=== PATIENT | female | born 1985 | race Caucasian/White ===

== ENCOUNTER 2016-11-07 13:53 | Emergency (ER) | payer SELFPAY ==
--- NOTE | 2016-11-07 14:19 | ER Document Report ---
ED Medical Screen (RME) - General Chief Complaint: Foot Pain Stated Complaint: FOOT INJURY Mode of Arrival: Wheelchair Information source: Patient Notes: 31-year-old female presents to the emergency department complaining of left foot pain. States approximately 2 hours ago accidentally struck her left foot on corner of wall. I have greeted and performed a rapid initial assessment of this patient. A comprehensive ED assessment and evaluation of the patient, analysis of test results and completion of the medical decision making process will be conducted by additional ED providers. TRAVEL OUTSIDE OF THE [place] IN LAST 30 DAYS: No - Related Data Allergies/Adverse Reactions: No Known Drug Allergies Allergy (Unknown, Verified 11/07/16 14:17) glutens Adverse Reaction (Intermediate, Uncoded 11/07/16 14:17) G.I. distress Past Medical History - Social History Chew tobacco use (# tins/day): No Frequency of alcohol use: Rare Drug Abuse: None - Past Medical History Cardiac Medical History: Denies: Hx Coronary Artery Disease, Hx Heart Attack, Hx Hypertension Pulmonary Medical History: Denies: Hx Asthma, Hx Bronchitis, Hx COPD, Hx Pneumonia Neurological Medical History: Denies: Hx Cerebrovascular Accident, Hx Seizures Renal/ Medical History: Reports: Hx Kidney Stones. Denies: Hx Peritoneal Dialysis Malignancy Medical History: Reports: Hx Breast Cancer, Hx Ovarian Cancer GI Medical History: Reports: Hx Diverticulitis, Hx Irritable Bowel Musculoskeltal Medical History: Denies Hx Arthritis, Reports Hx Musculoskeletal Deformity, Reports Hx Musculoskeletal Trauma Skin Medical History: Reports Hx Psoriasis Psychiatric Medical History: Reports: Hx Attention Deficit Hyperactivity Disorder, Hx Bipolar Disorder, Hx Post Traumatic Stress Disorder Traumatic Medical History: Reports: Hx Fractures - left arm and ribs Infectious Medical History: Reports: Hx C-Diff Past Surgical History: Reports: Hx Breast Surgery - lumpectomy right, Hx Section, Hx Cholecystectomy, Hx Mastectomy - right, Hx Oral Surgery - jaw wired shut, wisdom teeth removed, Hx Tubal Ligation - Immunizations Hx Diphtheria, Pertussis, Tetanus Vaccination: Yes Physical Exam - Vital signs Vitals: Temp Pulse Resp BP Pulse Ox 98.1 F 97 16 116/68 97 11/07/16 14:13 11/07/16 14:13 11/07/16 14:13 11/07/16 14:13 11/07/16 14:13 - General General appearance: Appears well, Alert In distress: None - Cardiovascular Pulses: Normal: Posterior tibial Normal capillary refill: Yes - Extremities Foot: Tender. No: Deformity Course - Vital Signs Vital signs: Temp Pulse Resp BP Pulse Ox 98.1 F 97 16 116/68 97 11/07/16 14:13 11/07/16 14:13 11/07/16 14:13 11/07/16 14:13 11/07/16 14:13
--- NOTE | 2016-11-07 15:18 | ER Document Report ---
HPI - HPI Patient complains to provider of: foot injury Onset: Just prior to arrival Onset/Duration: Sudden Quality of pain: Sharp Pain Level: 4 Context: Patient states she was running while wearing socks and slid on a carpeted surface hitting a wall. Patient complains of left lateral foot pain. Associated Symptoms: Other - Left foot injury Exacerbated by: Standing, Movement, Walking Relieved by: Denies Similar symptoms previously: No Recently seen / treated by doctor: No - ROS ROS below otherwise negative: Yes Systems Reviewed and Negative: Yes All other systems reviewed and negative - GASTROINTESTINAL Gastrointestinal: DENIES: Nausea, Patient vomiting - REPRODUCTIVE Reproductive: DENIES: : - MUSCULOSKELETAL Musculoskeletal: REPORTS: Extremity pain - DERM Skin Color: Normal Skin Problems: None Past Medical History - General Information source: Patient - Social History Smoking Status: Current Every Day Smoker Chew tobacco use (# tins/day): No Frequency of alcohol use: Rare Drug Abuse: None Occupation: none Lives with: Family Family History: Arthritis, COPD, CVA, DM, Hyperlipidemia, Hypertension, Malignancy. denies: CAD, Thyroid Disfunction Patient has suicidal ideation: No Patient has homicidal ideation: No - Past Medical History Cardiac Medical History: Reports: Other - Low blood pressure Denies: Hx Coronary Artery Disease, Hx Heart Attack, Hx Hypertension Pulmonary Medical History: Denies: Hx Asthma, Hx Bronchitis, Hx COPD, Hx Pneumonia Neurological Medical History: Denies: Hx Cerebrovascular Accident, Hx Seizures Renal/ Medical History: Reports: Hx Kidney Stones. Denies: Hx Peritoneal Dialysis Malignancy Medical History: Reports: Hx Breast Cancer, Hx Ovarian Cancer GI Medical History: Reports: Hx Diverticulitis, Hx Irritable Bowel Musculoskeltal Medical History: Denies Hx Arthritis, Reports Hx Musculoskeletal Deformity, Reports Hx Musculoskeletal Trauma Skin Medical History: Reports Hx Psoriasis Psychiatric Medical History: Reports: Hx Attention Deficit Hyperactivity Disorder, Hx Bipolar Disorder, Hx Post Traumatic Stress Disorder Traumatic Medical History: Reports: Hx Fractures - left arm and ribs Infectious Medical History: Reports: Hx C-Diff Past Surgical History: Reports: Hx Breast Surgery - lumpectomy right, Hx Section, Hx Cholecystectomy, Hx Mastectomy - right, Hx Oral Surgery - jaw wired shut, wisdom teeth removed, Hx Tubal Ligation - Immunizations Hx Diphtheria, Pertussis, Tetanus Vaccination: Yes Vertical Provider Document - CONSTITUTIONAL Agree With Documented VS: Yes Exam Limitations: No Limitations General Appearance: WD/WN, No Apparent Distress - INFECTION CONTROL TRAVEL OUTSIDE OF THE [place] IN LAST 30 DAYS: No - HEENT HEENT: Atraumatic, Normocephalic - NECK Neck: Normal Inspection - RESPIRATORY Respiratory: No Respiratory Distress O2 Sat by Pulse Oximetry: 97 - CARDIOVASCULAR Pulses: Normal: Dorsalis pedis - MUSCULOSKELETAL/EXTREMETIES Musculoskeletal/Extremeties: MAEW, Tender - Left foot tenderness along left fifth metatarsal and left second toe, Eccymosis - Left second toe - NEURO Level of Consciousness: Awake, Alert, Appropriate Motor/Sensory: No Motor Deficit - DERM Integumentary: Warm, Dry, No Rash Course - Vital Signs Vital signs: Temp Pulse Resp BP Pulse Ox 98.1 F 97 16 116/68 97 11/07/16 14:13 11/07/16 14:13 11/07/16 14:13 11/07/16 14:13 11/07/16 14:13 - Diagnostic Test Radiology reviewed: Image reviewed, Reports reviewed Procedures - Immobilization Left Foot Pre-Proc Neuro Vasc Exam: Normal Immobilizer type: Diego wrap, Post-op shoe Performed by: PCT Post-Proc Neuro Vasc Exam: Normal Alignment checked and good: Yes Discharge - Discharge Clinical Impression: Sprain of foot, left Qualifiers: Encounter type: initial encounter Qualified Code(s): S93.602A - Unspecified sprain of left foot, initial encounter Condition: Stable Disposition: HOME, SELF-CARE Instructions: Sprain ([facility]), Oral Narcotic Medication ([facility]), Ice Packs ([facility]), Diego Wrap ([facility]), Post-Op Shoe ([facility]), Use of Crutches ([facility]) Additional Instructions: Return immediately for any new or worsening symptoms Followup with your primary care provider, call tomorrow to make a followup appointment Follow up with orthopedic DrTai for any continued pain or problems Weightbearing as tolerated Prescriptions: Oxycodone HCl/Acetaminophen [Percocet 5-325 mg Tablet] 1 tab PO ASDIR PRN #15 tablet PRN Reason: Referrals: [facility] ([facility]) [Provider Group] - Follow up as needed
[2016-11-07 16:02] VITALS: BP 120/63
== END 2016-11-07 16:02 | disposition home or self-care (01) ==
LOC: ER 13:53
DX: S93.602A Unspecified sprain of left foot, initial encounter (principal); S90.122A Contusion of left lesser toe(s) without damage to nail, initial encounter; W22.01XA Walked into wall, initial encounter; Z85.3 Personal history of malignant neoplasm of breast; Z85.43 Personal history of malignant neoplasm of ovary
CPT/HCPCS: 99283

== ENCOUNTER 2017-01-12 21:02 | Emergency (ER) | payer SELFPAY ==
[2017-01-12 21:13] VITALS: BP 119/65
--- NOTE | 2017-01-12 23:17 | ER Document Report ---
ED ENT - General Chief Complaint: L ear pain with bleeding/ pressure Stated Complaint: BLEEDING FROM EAR WITH PAIN AND PRESSURE Notes: The patient is a 31-year-old female who presents with bleeding from her left ear after using a Q-tip and maxillary sinus pressure over the past 2 days. On arrival to the emergency room, the patient's bleeding has resolved. She denies hearing changes, blurry vision, fevers or rhinorrhea. TRAVEL OUTSIDE OF THE [place] IN LAST 30 DAYS: No - Related Data Allergies/Adverse Reactions: No Known Drug Allergies Allergy (Unknown, Verified 11/07/16 14:17) glutens Adverse Reaction (Intermediate, Uncoded 11/07/16 14:17) G.I. distress Past Medical History - General Information source: Patient - Social History Smoking Status: Unknown if Ever Smoked Family History: Arthritis, COPD, CVA, DM, Hyperlipidemia, Hypertension, Malignancy. denies: CAD, Thyroid Disfunction - Past Medical History Cardiac Medical History: Denies: Hx Coronary Artery Disease, Hx Heart Attack, Hx Hypertension Pulmonary Medical History: Denies: Hx Asthma, Hx Bronchitis, Hx COPD, Hx Pneumonia Neurological Medical History: Denies: Hx Cerebrovascular Accident, Hx Seizures Renal/ Medical History: Reports: Hx Kidney Stones. Denies: Hx Peritoneal Dialysis Malignancy Medical History: Reports: Hx Breast Cancer, Hx Ovarian Cancer GI Medical History: Reports: Hx Diverticulitis, Hx Irritable Bowel Musculoskeltal Medical History: Denies Hx Arthritis, Reports Hx Musculoskeletal Deformity, Reports Hx Musculoskeletal Trauma Skin Medical History: Reports Hx Psoriasis Psychiatric Medical History: Reports: Hx Attention Deficit Hyperactivity Disorder, Hx Bipolar Disorder, Hx Post Traumatic Stress Disorder Traumatic Medical History: Reports: Hx Fractures - left arm and ribs Infectious Medical History: Reports: Hx C-Diff Past Surgical History: Reports: Hx Breast Surgery - lumpectomy right, Hx Section, Hx Cholecystectomy, Hx Mastectomy - right, Hx Oral Surgery - jaw wired shut, wisdom teeth removed, Hx Tubal Ligation - Immunizations Hx Diphtheria, Pertussis, Tetanus Vaccination: Yes Review of Systems - Review of Systems Notes: REVIEW OF SYSTEMS: CONSTITUTIONAL: -fevers, -chills EENT: -eye pain, -difficulty swallowing, -nasal congestion, +left ear bleeding, +left maxillary sinus pressure CARDIOVASCULAR:-chest pain, -syncope. RESPIRATORY: -cough, -SOB GASTROINTESTINAL: -abdominal pain, -nausea, -vomiting, -diarrhea GENITOURINARY: -dysuria, -hematuria MUSCULOSKELETAL: -back pain, -neck pain SKIN: -rash or skin lesions. HEMATOLOGIC: -easy bruising or bleeding. LYMPHATIC: -swollen, enlarged glands. NEUROLOGICAL: -altered mental status or loss of consciousness, -headache, - neurologic symptoms PSYCHIATRIC: -anxiety, -depression. ALL OTHER SYSTEMS REVIEWED AND NEGATIVE. Physical Exam - Vital signs Vitals: Temp Pulse Resp BP Pulse Ox 98.1 F 78 18 119/65 94 01/12/17 21:09 01/12/17 21:09 01/12/17 21:09 01/12/17 21:09 01/12/17 21:09 - Notes Notes: PHYSICAL EXAMINATION: GENERAL: Well-appearing, well-nourished and in no acute distress. HEAD: Atraumatic, normocephalic. EYES: Pupils equal round and reactive to light, extraocular movements intact, sclera anicteric, conjunctiva are normal. ENT: nares patent, oropharynx clear without exudates. Moist mucous membranes. Dried blood in left ear canal. Left maxillary sinus tenderness NECK: Normal range of motion, supple without lymphadenopathy LUNGS: Breath sounds clear to auscultation bilaterally and equal. No wheezes rales or rhonchi. HEART: Regular rate and rhythm without murmurs ABDOMEN: Soft, nontender, normoactive bowel sounds. No guarding, no rebound. No masses appreciated. EXTREMITIES: Normal range of motion, no pitting or edema. No cyanosis. NEUROLOGICAL: Cranial nerves grossly intact. Normal speech, normal gait. Normal sensory, motor, and reflex exams. PSYCH: Normal mood, normal affect. SKIN: Warm, Dry, normal turgor, no rashes or lesions noted. Course - Re-evaluation Re-evalutation: No active bleeding from the ear. Instructed her to not use Q-tips in the ear. - Vital Signs Vital signs: Temp Pulse Resp BP Pulse Ox 98.1 F 78 18 119/65 94 01/12/17 21:09 01/12/17 21:09 01/12/17 21:09 01/12/17 21:09 01/12/17 21:09 Discharge - Discharge Clinical Impression: Abrasion of left ear canal Qualifiers: Encounter type: initial encounter Qualified Code(s): S00.412A - Abrasion of left ear, initial encounter Condition: Good Disposition: HOME, SELF-CARE Additional Instructions: Abrasions An abrasion is a scraping injury of the skin. Some scarring may result. The seriousness of an abrasion is not always obvious at first. Hidden tissue damage may be present and infection may occur despite proper care. Complete healing may take from ten days to as long as a month. The healing time depends on the depth of the abrasion, and on the amount of crushing of underlying tissues from the injury. Keep the wound and dressing clean. Do not shower or bathe the area until okayed by the doctor. If the dressing gets wet, remove it and blot the wound dry, then reapply a clean dressing. Dressings should be changed every day. Sunscreen should be used for six months after the skin is healed. If any signs of infection occur (swelling, redness, increasing tenderness, red streaks, profuse purulent drainage from the abrasion, tender lumps in the armpit or groin above the abrasion, or fever), see the doctor immediately. Referrals: KARYNA ALVARADO MD [ACTIVE STAFF] - Follow up as needed
== END 2017-01-12 23:30 | disposition home or self-care (01) ==
LOC: ER 21:02
DX: S00.412A Abrasion of left ear, initial encounter (principal); H92.02 Otalgia, left ear; X58.XXXA Exposure to other specified factors, initial encounter; Y93.E8 Activity, other personal hygiene; Z87.442 Personal history of urinary calculi; Z85.3 Personal history of malignant neoplasm of breast; Z85.43 Personal history of malignant neoplasm of ovary; Z90.49 Acquired absence of other specified parts of digestive tract; Z90.11 Acquired absence of right breast and nipple; Z98.51 Tubal ligation status
CPT/HCPCS: 99282

== ENCOUNTER 2017-01-14 13:19 | Emergency (ER) | payer SELFPAY ==
--- NOTE | 2017-01-14 14:12 | ER Document Report ---
HPI - HPI Patient complains to provider of: worsening left ear pain Onset: Other Onset/Duration: Persistent, Worse Quality of pain: Achy, Pressure, Throbbing Pain Level: 4 Context: 31-year-old female was treated for a scratch to her left ear canal 2 days ago in the emergency department. She was told to come back of the pain got worse and she feels like there is pressure and increased pain that radiates to preauricular area. Associated Symptoms: None Exacerbated by: Movement - External ear Relieved by: Denies Similar symptoms previously: No Recently seen / treated by doctor: Yes - ROS ROS below otherwise negative: Yes Systems Reviewed and Negative: Yes All other systems reviewed and negative - REPRODUCTIVE Reproductive: DENIES: : - DERM Skin Color: Normal, Convoy Past Medical History - General Information source: Patient - Social History Smoking Status: Current Every Day Smoker Frequency of alcohol use: None Drug Abuse: None Lives with: Spouse/Significant other Family History: Arthritis, COPD, CVA, DM, Hyperlipidemia, Hypertension, Malignancy - Past Medical History Cardiac Medical History: Pulmonary Medical History: Renal/ Medical History: Reports: Hx Kidney Stones Malignancy Medical History: Reports: Hx Breast Cancer, Hx Ovarian Cancer GI Medical History: Reports: Hx Diverticulitis, Hx Irritable Bowel Musculoskeltal Medical History: Reports Hx Musculoskeletal Deformity, Reports Hx Musculoskeletal Trauma Skin Medical History: Reports Hx Psoriasis Psychiatric Medical History: Reports: Hx Attention Deficit Hyperactivity Disorder, Hx Bipolar Disorder, Hx Post Traumatic Stress Disorder Traumatic Medical History: Reports: Hx Fractures - left arm and ribs Infectious Medical History: Reports: Hx C-Diff Past Surgical History: Reports: Hx Breast Surgery - lumpectomy right, Hx Section, Hx Cholecystectomy, Hx Mastectomy - right, Hx Oral Surgery - jaw wired shut, wisdom teeth removed, Hx Tubal Ligation - Immunizations Hx Diphtheria, Pertussis, Tetanus Vaccination: Yes Vertical Provider Document - CONSTITUTIONAL Agree With Documented VS: Yes Exam Limitations: No Limitations - INFECTION CONTROL TRAVEL OUTSIDE OF THE [place] IN LAST 30 DAYS: No - HEENT HEENT: Normocephalic. negative: Pharyngeal Erythema, Tympanic Membrane Red Notes: Mild Swelling, pink, and tenderness to the left ear canal. The TM is normal. No pre-or posterior auricular nodes and no external ear swelling - NECK Neck: Supple. negative: Lymphadenopathy-Left, Lymphadenopathy-Right - RESPIRATORY Respiratory: Breath Sounds Normal, No Respiratory Distress O2 Sat by Pulse Oximetry: 100 - CARDIOVASCULAR Cardiovascular: Regular Rate, Regular Rhythm - NEURO Level of Consciousness: Awake, Alert - DERM Integumentary: Warm, Dry Course - Vital Signs Vital signs: Temp Pulse Resp BP Pulse Ox 99 F 96 16 112/65 100 01/14/17 13:27 01/14/17 13:27 01/14/17 13:27 01/14/17 13:27 01/14/17 13:27 Discharge - Discharge Clinical Impression: Left otitis externa Qualifiers: Otitis externa type: unspecified type Chronicity: acute Qualified Code(s): H60.502 - Unspecified acute noninfective otitis externa, left ear Otalgia Qualifiers: Laterality: left Qualified Code(s): H92.02 - Otalgia, left ear Disposition: HOME, SELF-CARE Unit Admitted: Nursery Instructions: Acetaminophen, Otitis Externa ([facility]), Use of [id number]-Gyu-Djxgcmb Ibuprofen ([facility]), Warm Packs ([facility]) Additional Instructions: warm compress ear drops with antibiotic and steroid will help see ent doctor if persists return to er if any swelling to canal or external ear, fever, worsening pain Please complete the patient satisfaction survey if you get one, and return it.. If you do not receive a survey, then you can go to the [facility] website, [email or web address] and place your comments about your very good care. Thank you very much. It was a pleasure being your medical provider today. Prescriptions: Ciprofloxacin HCl/Dexameth [Ciprodex Otic Suspension 7.5 ml Bottle] 4 drop OS BID #1 bottle
[2017-01-14 15:15] VITALS: BP 110/62
== END 2017-01-14 15:15 | disposition home or self-care (01) ==
LOC: ER 13:19
DX: H60.502 Unspecified acute noninfective otitis externa, left ear (principal); H92.02 Otalgia, left ear; F17.200 Nicotine dependence, unspecified, uncomplicated; Z87.442 Personal history of urinary calculi; Z85.3 Personal history of malignant neoplasm of breast; Z85.43 Personal history of malignant neoplasm of ovary; Z90.49 Acquired absence of other specified parts of digestive tract
CPT/HCPCS: 99282

== ENCOUNTER 2017-06-11 22:24 | Emergency (ER) | payer SELFPAY ==
--- NOTE | 2017-06-11 22:53 | RADIOLOGY REPORT (SQ) ---
EXAM DESCRIPTION: CHEST PA/LAT COMPLETED DATE/TIME: 06/11/2017 10:45 pm REASON FOR STUDY: sob COMPARISON: 06/12/2012 NUMBER OF VIEWS: Two view. TECHNIQUE: Frontal and lateral radiographic views of the chest acquired. LIMITATIONS: None. FINDINGS: LUNGS AND PLEURA: Mild Peribronchial cuffing and interstitial changes. No consolidation, effusion, or pneumothorax. MEDIASTINUM AND HILAR STRUCTURES: No masses. No contour abnormalities. HEART AND VASCULAR STRUCTURES: Heart normal in size and contour. No evidence for failure. BONES: No acute findings. HARDWARE: None in the chest. OTHER: No other significant finding. IMPRESSION: REACTIVE AIRWAY DISEASE VERSUS VIRAL SYNDROME. NO CONSOLIDATION. TECHNICAL DOCUMENTATION: JOB ID: [id number] [employer]- All Rights Reserved
[2017-06-11] MEDS ORDERED: TRAMADOL HCL 50 MG TABLET PO ONE (23:15)
--- NOTE | 2017-06-11 23:20 | ER Document Report ---
ED General - General Chief Complaint: Shortness Of Breath Stated Complaint: BREATHING PROBLEMS Time Seen by Provider: 06/11/17 23:07 Notes: Patient is a 31-year-old female presents with complaint of pain along her left rib cage. Hurts to touch and hurts to take a deep breath. She says it came on suddenly an hour and a half ago. Boyfriend says that she is actually had some dull pain there for the last 2 days but also became suddenly worse an hour and a half ago. She does have a history of shingles. She had shingles in her right hand. She has had no rash over the area over her rib cage. She denies recent fevers or infections. She currently takes no medications and is otherwise healthy. She does smoke. She denies taking control. TRAVEL OUTSIDE OF THE [place] IN LAST 30 DAYS: No - Related Data Allergies/Adverse Reactions: No Known Drug Allergies Allergy (Unknown, Verified 06/11/17 22:27) glutens Adverse Reaction (Intermediate, Uncoded 11/07/16 14:17) G.I. distress Past Medical History - Social History Smoking Status: Current Every Day Smoker Frequency of alcohol use: None Drug Abuse: None Family History: Arthritis, COPD, CVA, DM, Hyperlipidemia, Hypertension, Malignancy Patient has suicidal ideation: No Patient has homicidal ideation: No - Past Medical History Cardiac Medical History: Denies: Hx Coronary Artery Disease, Hx Heart Attack, Hx Hypertension Pulmonary Medical History: Denies: Hx Asthma, Hx Bronchitis, Hx COPD, Hx Pneumonia Neurological Medical History: Denies: Hx Cerebrovascular Accident, Hx Seizures Renal/ Medical History: Reports: Hx Kidney Stones. Denies: Hx Peritoneal Dialysis Malignancy Medical History: Reports: Hx Breast Cancer, Hx Ovarian Cancer GI Medical History: Reports: Hx Diverticulitis, Hx Irritable Bowel Musculoskeltal Medical History: Denies Hx Arthritis, Reports Hx Musculoskeletal Deformity, Reports Hx Musculoskeletal Trauma Skin Medical History: Reports Hx Psoriasis Psychiatric Medical History: Reports: Hx Attention Deficit Hyperactivity Disorder, Hx Bipolar Disorder, Hx Post Traumatic Stress Disorder Traumatic Medical History: Reports: Hx Fractures - left arm and ribs Infectious Medical History: Reports: Hx C-Diff Past Surgical History: Reports: Hx Breast Surgery - lumpectomy right, Hx Section, Hx Cholecystectomy, Hx Gynecologic Surgery - rt oophorectomy, Hx Mastectomy - right, Hx Oral Surgery - jaw wired shut, wisdom teeth removed, Hx Tubal Ligation - Immunizations Hx Diphtheria, Pertussis, Tetanus Vaccination: Yes Review of Systems - Review of Systems Notes: My Normal Review Basic REVIEW OF SYSTEMS: CONSTITUTIONAL : Denies fever, chills, or sweats. Denies recent illness. EENT: Denies eye, ear, throat, or mouth pain or symptoms. Denies nasal or sinus congestion. CARDIOVASCULAR: Denies chest pain. RESPIRATORY: Denies cough, cold, or chest congestion. Denies shortness of breath, difficulty breathing, or wheezing. GASTROINTESTINAL: Denies abdominal pain. Denies nausea, vomiting, or diarrhea. Denies constipation. Last BM: MUSCULOSKELETAL: Denies neck or back pain or joint pain or swelling. SKIN: Denies rash or skin lesions. NEUROLOGICAL: Denies altered mental status or loss of consciousness. Denies headache. Denies weakness or paralysis or loss of use of either side. Denies problems with gait or speech. Denies sensory or motor loss.. ALL OTHER SYSTEMS REVIEWED AND NEGATIVE. Physical Exam - Vital signs Vitals: Temp Pulse Resp BP Pulse Ox 98.5 F 91 18 107/83 100 06/11/17 22:29 06/11/17 22:29 06/11/17 22:29 06/11/17 22:29 06/11/17 22:29 - Notes Notes: General Appearance: Well nourished, alert, cooperative, no acute distress, no obvious discomfort. Vitals: reviewed, See vital signs table. Head: no swelling or tenderness to the head Eyes: PERRL, EOMI, Conjuctiva clear Mouth: No decreasd moisture Chest wall: Patient is severely tender to touch along the left rib cage. I do not see any shingles or rash this time. Lungs: No wheezing, No rales, No rhonci, No accessory muscle use, good air exchange bilaterally. Heart: Normal rate, Regular rythm, No murmur, no rub Abdomen: Normal BS, soft, No rigidity, No abdominal tenderness, No guarding, no rebound, no abdominal masses, no organomegaly Extremities: strength 5/5 in all extremities, good pulses in all extremities, no swelling or tenderness in the extremities, no edema. Skin: warm, dry, appropriate color, no rash Neuro: speech clear, oriented x 3, normal affect, responds appropriately to questions. Course - Re-evaluation Re-evalutation: 06/12/17 00:46 Patient's pain is such that she is very tender with any touching of the skin itself. I suspect that she most likely is having pre-herpetic neuralgia. I suspect in the few days she most likely of shingles over this area. She does have a history of shingles in the past. Pain is very pleuritic and she is a smoker therefore I did obtain a d-dimer. This was negative. Her vital signs are normal. I feel she is safe to be discharged home. Informed her follow-up with her doctor next 2-3 days. I encouraged her return to ER if she has worsening pain, fevers, difficulty breathing, or feels that she is getting worse. Patient agrees with plan will be discharged home. Dictation of this chart was performed using voice recognition software; therefore, there may be some unintended grammatical errors. - Vital Signs Vital signs: Temp Pulse Resp BP Pulse Ox 98.5 F 91 18 107/83 100 06/11/17 22:29 06/11/17 22:29 06/11/17 22:29 06/11/17 22:29 06/11/17 22:29 - Laboratory Result Diagrams: 06/11/17 23:22 06/11/17 23:22 Laboratory results interpreted by me: 06/11/17 06/11/17 23:22 23:22 WBC 10.8 H RDW 14.2 H Glucose 68 L Discharge - Discharge Clinical Impression: Rib pain on left side Condition: Good Disposition: HOME, SELF-CARE Instructions: Oral Narcotic Medication ([facility]) Additional Instructions: Please return to the ER Immediately if you develop fevers, difficulty breathing , or feel that you are worsening. Please take do not drive when taking the ultram as it will make you sleepy. Please follow-up with your doctor in 3-4 days for close reevaluation. Prescriptions: Tramadol HCl [Ultram 50 mg Tablet] 50 mg PO Q6HP PRN #25 tablet PRN Reason: Forms: Return to School
[2017-06-11 23:37] LABS: ABSOLUTE BASOPHILS # (AUTO) 0.1 10^3/uL (0.0-0.2); ABSOLUTE EOSINOPHILS # (AUTO) 0.1 10^3/uL (0.0-0.6); ABSOLUTE LYMPHOCYTES (AUTO) 3.3 10^3/uL (0.5-4.7); ABSOLUTE MONOCYTES (AUTO) 0.8 10^3/uL (0.1-1.4); ABSOLUTE NEUT (AUTO) 6.5 10^3/uL (1.7-8.2); BASOPHILS % (AUTO) 0.6 % (0-2); EOSINOPHILS % (AUTO) 0.5 % (0-6); HEMATOCRIT 38.7 % (36.0-47.0); HEMOGLOBIN 13.9 g/dL (12.0-15.5); LYMPHOCYTES % (AUTO) 30.8 % (13-45); MEAN CORPUSCULAR HEMOGLOBIN 32.5 pg (27.0-33.4); MEAN CORPUSCULAR HGB CONC 35.9 g/dL (32.0-36.0); MEAN CORPUSCULAR VOLUME 91 fl (80-97); MONOCYTES % (AUTO) 7.7 % (3-13); RED BLOOD COUNT 4.27 10^6/uL (3.72-5.28); RED CELL DISTRIBUTION WIDTH 14.2 % (11.5-14.0); SEGMENTED NEUTROPHILS % (AUTO) 60.4 % (42-78); WHITE BLOOD COUNT 10.8 10^3/uL (4.0-10.5)
[2017-06-11 23:50] LABS: ANION GAP 10 (5-19); BLOOD UREA NITROGEN 12 mg/dL (7-20); CALCIUM 10.1 mg/dL (8.4-10.2); CARBON DIOXIDE 25 mmol/L (22-30); CHLORIDE 106 mmol/L (98-107); CREATININE RESULT 0.64 mg/dL (0.52-1.25); GLUCOSE 68 mg/dL (75-110); SODIUM 141.4 mmol/L (137-145)
[2017-06-12 01:10] VITALS: BP 99/63
--- NOTE | 2017-06-12 07:25 | EKG REPORT ---
SEVERITY:- BORDERLINE ECG - SINUS TACHYCARDIA PROBABLE LEFT ATRIAL ABNORMALITY MINIMAL ST DEPRESSION, INFERIOR LEADS : Confirmed by: Bony Allen MD 12-Jun-2017 07:23:58
== END 2017-06-12 00:55 | disposition home or self-care (01) ==
LOC: ER 22:24
DX: R07.81 Pleurodynia (principal); R07.1 Chest pain on breathing; F17.200 Nicotine dependence, unspecified, uncomplicated
CPT/HCPCS: 36415; 71020; 80048; 85025; 85379; 93005; 93010; 99285

== ENCOUNTER 2018-01-20 00:53 | Emergency (ER) | payer SELFPAY ==
[2018-01-20] MEDS ORDERED: LIDOCAINE 2% URO-JET 5 ML KIT MM ONE (01:58)
--- NOTE | 2018-01-20 01:59 | ER Document Report ---
ED General - General Mode of Arrival: Ambulatory Information source: Patient TRAVEL OUTSIDE OF THE [place] IN LAST 30 DAYS: No <FRANCISCO MEDINA - Last Filed: 01/20/18 04:23> <KRISH [employer] - Last Filed: 01/20/18 04:47> - General Chief Complaint: Laceration Stated Complaint: VAGINAL LACERATION Time Seen by Provider: 01/20/18 01:38 Notes: Patient is a 32-year-old female presents to the emergency department complaining a possible laceration on her labia. Patient states that she was in the middle of intercourse when her partner "missed" her vagina and she felt a sting. She also complains of vaginal pain with ambulation. (FRANCISCO MEDINA) - Related Data Allergies/Adverse Reactions: No Known Drug Allergies Allergy (Unknown, Verified 01/20/18 00:55) glutens Adverse Reaction (Intermediate, Uncoded 11/07/16 14:17) G.I. distress Past Medical History - General Information source: Patient - Social History Smoking Status: Current Every Day Smoker Chew tobacco use (# tins/day): No Family History: Arthritis, COPD, CVA, DM, Hyperlipidemia, Hypertension, Malignancy - Past Medical History Cardiac Medical History: Pulmonary Medical History: Renal/ Medical History: Reports: Hx Kidney Stones Malignancy Medical History: Reports: Hx Breast Cancer, Hx Ovarian Cancer GI Medical History: Reports: Hx Diverticulitis, Hx Irritable Bowel Musculoskeltal Medical History: Reports Hx Musculoskeletal Deformity, Reports Hx Musculoskeletal Trauma Skin Medical History: Reports Hx Psoriasis Psychiatric Medical History: Reports: Hx Attention Deficit Hyperactivity Disorder, Hx Bipolar Disorder, Hx Post Traumatic Stress Disorder Traumatic Medical History: Reports: Hx Fractures - left arm and ribs Infectious Medical History: Reports: Hx C-Diff Past Surgical History: Reports: Hx Breast Surgery - lumpectomy right, Hx Section, Hx Cholecystectomy, Hx Gynecologic Surgery - rt oophorectomy, Hx Mastectomy - right, Hx Oral Surgery - jaw wired shut, wisdom teeth removed, Hx Tubal Ligation - Immunizations Hx Diphtheria, Pertussis, Tetanus Vaccination: Yes <FRANCISCO MEDINA - Last Filed: 01/20/18 04:23> Review of Systems - Review of Systems Constitutional: No symptoms reported EENT: No symptoms reported Cardiovascular: No symptoms reported Respiratory: No symptoms reported Gastrointestinal: No symptoms reported Genitourinary: No symptoms reported Female Genitourinary: See HPI Musculoskeletal: No symptoms reported Skin: No symptoms reported Hematologic/Lymphatic: No symptoms reported Neurological/Psychological: No symptoms reported -: Yes All other systems reviewed and negative <FRANCISCO MEDINA - Last Filed: 01/20/18 04:23> Physical Exam - General General appearance: Appears well, Anxious In distress: None - HEENT Head: Normocephalic, Atraumatic Eyes: Normal Conjunctiva: Normal Extraocular movements intact: Yes Pupils: PERRL Mucous membranes: Moist Neck: Normal - Genitourinary External exam: Laceration - 3 cm irregular lacerations to the labia minora, bilaterally. Bleeding controlled. - Extremities General upper extremity: Normal ROM General lower extremity: Normal ROM - Neurological Neuro grossly intact: Yes Cognition: Normal Orientation: AAOx4 Miroslava Coma Scale Eye Opening: Spontaneous Miroslava Coma Scale Verbal: Oriented Miroslava Coma Scale Motor: Obeys Commands Miroslava Coma Scale Total: 15 Speech: Normal - Psychological Associated symptoms: Anxious - Skin Skin Temperature: Warm Skin Moisture: Dry <FRANCISCO MEDINA - Last Filed: 01/20/18 04:23> - Respiratory Respiratory status: No respiratory distress Breath sounds: Normal - Cardiovascular Rhythm: Regular <KRISH [employer] - Last Filed: 01/20/18 04:47> - Vital signs Vitals: Temp Pulse Resp BP Pulse Ox 97.4 F 86 20 114/67 96 01/20/18 01:01 01/20/18 01:01 01/20/18 01:01 01/20/18 01:01 01/20/18 01:01 Course <FRANCISCO MEDINA - Last Filed: 01/20/18 04:23> <[employer] - Last Filed: 01/20/18 04:47> - Re-evaluation Re-evalutation: 01/20/18 Patient is a 32-year-old female who presents complaining of vaginal pain after intercourse. Patient has superficial lacerations bilaterally to her labia minora. We have discussed sutures versus applying bacitracin and letting the wounds heal is a very superficial. The patient would prefer to not have the wound sutured. Patient has a history of breast and I believe ovarian cancer and has been on tamoxifen in the past we have discussed estrogen cream and she is not supposed to use any kind of estrogen so we will not do that at this time. Patient will take Tylenol or ibuprofen as needed at home for pain. No other injuries. She can use sitz bath and apply Neosporin. Return if any further concerns such as redness, drainage, or fever. Understands agrees with plan. Follow-up with [facility]. Stable for discharge. (KRISH [employer]) - Vital Signs Vital signs: Temp Pulse Resp BP Pulse Ox 97.4 F 86 20 114/67 96 01/20/18 01:01 01/20/18 01:01 01/20/18 01:01 01/20/18 01:01 01/20/18 01:01 Discharge <FRANCISCO MEDINA - Last Filed: 01/20/18 04:23> <[employer]ISH [employer] - Last Filed: 01/20/18 04:47> - Discharge Clinical Impression: Laceration of labia minora Qualifiers: Encounter type: initial encounter Qualified Code(s): S31.41XA - Laceration without foreign body of vagina and vulva, initial encounter Condition: Stable Disposition: HOME, SELF-CARE Instructions: Delayed Wound Closure ([facility]) Additional Instructions: Please use sitz bath at home. Please apply bacitracin after you wipe. Do not let area get too dry. Return if you have any further concerns or symptoms such as redness, drainage, or fever. Referrals: SYL PONCE MD [Primary Care Provider] - Follow up in 3-5 days Scribe Attestation: 01/20/18 04:46 I personally performed the services described in the documentation, reviewed and edited the documentation which was dictated to the scribe in my presence, and it accurately records my words and actions. ([employer]) Scribe Documentation - Scribe Written by Mily:: Mily Golden, 01/20/2018 00:14 acting as scribe for :: Bee <FRANCISCO MEDINA - Last Filed: 01/20/18 04:23>
[2018-01-20 05:30] VITALS: BP 101/73
== END 2018-01-20 04:30 | disposition home or self-care (01) ==
LOC: ER 00:53
DX: S31.41XA Laceration without foreign body of vagina and vulva, initial encounter (principal); X58.XXXA Exposure to other specified factors, initial encounter; Y93.89 Activity, other specified; F17.200 Nicotine dependence, unspecified, uncomplicated; Z87.442 Personal history of urinary calculi; Z85.3 Personal history of malignant neoplasm of breast; Z85.43 Personal history of malignant neoplasm of ovary; Z90.49 Acquired absence of other specified parts of digestive tract
CPT/HCPCS: 99283; J3490

== ENCOUNTER 2018-06-12 23:51 | Emergency (ER) | payer SELFPAY ==
[2018-06-12 23:58] VITALS: BP 122/72
[2018-06-13] MEDS ORDERED: HYDROCODONE/ACETAMINOPHEN 5-325 MG (6 TAB/ER DISP) PO PRN (02:52)
[2018-06-13] MEDS ORDERED: DEXAMETHASONE SOD PHOS INJ 10 MG/1 ML VIAL IM ONE (02:52)
[2018-06-13] MEDS ORDERED: AMOXICILLIN TR/POT CLAVULANATE 500-125 MG TAB PO ONE (02:52)
--- NOTE | 2018-06-13 02:53 | ER Document Report ---
HPI - HPI Patient complains to provider of: facial pain Pain Level: 5 Context: Patient is a 32 year old female that comes to the emergency department for chief complaint of right-sided facial pain that has been progressively worse over the past 2 days, she denies fever, she does report swollen lymph nodes in her neck, she denies sore throat or difficulty swallowing. She denies shortness of breath or severe headache. She does report a history of sinus infections, she states when she turns her head she can feel fluid shifting, pain is however much worse on the right side. She does have a dental tooth fracture but she states this does not feel like a tooth infection. - REPRODUCTIVE LMP: na Reproductive: DENIES: : Past Medical History - General Information source: Patient - Social History Smoking Status: Never Smoker Frequency of alcohol use: None Drug Abuse: None Lives with: Spouse/Significant other Family History: Arthritis, COPD, CVA, DM, Hyperlipidemia, Hypertension, Malignancy - Past Medical History Cardiac Medical History: Denies: Hx Coronary Artery Disease, Hx Heart Attack, Hx Hypertension Pulmonary Medical History: Denies: Hx Asthma, Hx Bronchitis, Hx COPD, Hx Pneumonia Neurological Medical History: Denies: Hx Cerebrovascular Accident, Hx Seizures Renal/ Medical History: Reports: Hx Kidney Stones. Denies: Hx Peritoneal Dialysis Malignancy Medical History: Reports: Hx Breast Cancer, Hx Ovarian Cancer GI Medical History: Reports: Hx Diverticulitis, Hx Irritable Bowel Musculoskeletal Medical History: Denies Hx Arthritis, Reports Hx Musculoskeletal Deformity, Reports Hx Musculoskeletal Trauma Skin Medical History: Reports Hx Psoriasis Psychiatric Medical History: Reports: Hx Attention Deficit Hyperactivity Disorder, Hx Bipolar Disorder, Hx Post Traumatic Stress Disorder Traumatic Medical History: Reports: Hx Fractures - left arm and ribs Infectious Medical History: Reports: Hx C-Diff Past Surgical History: Reports: Hx Breast Surgery - lumpectomy right, Hx Section, Hx Cholecystectomy, Hx Gynecologic Surgery - rt oophorectomy, Hx Mastectomy - right, Hx Oral Surgery - jaw wired shut, wisdom teeth removed, Hx Tubal Ligation - Immunizations Hx Diphtheria, Pertussis, Tetanus Vaccination: Yes Vertical Provider Document - CONSTITUTIONAL General Appearance: WD/WN, Mild Distress - Patient appears to be in pain, mildly ill-appearing - INFECTION CONTROL TRAVEL OUTSIDE OF THE [place] IN LAST 30 DAYS: No - HEENT HEENT: Atraumatic, Normocephalic. negative: Normal ENT Exam - Tenderness over the right maxillary sinus significantly, no induration or fluctuance, no external cellulitis. Oral pharyngeal exam unremarkable except for dentition, ear exam unremarkable. Mouth Diagram: 1 - Dental caries, however there is no significant erythema surrounding, no induration or fluctuance of the gum, no noted dental abscess - NECK Neck: Other - Mild bilateral anterior cervical adenopathy - RESPIRATORY Respiratory: Breath Sounds Normal, No Respiratory Distress - CARDIOVASCULAR Cardiovascular: Regular Rate, Regular Rhythm - GI/ABDOMEN Gastrointestinal: Abdomen Soft, Abdomen Non-Tender - BACK Back: Normal Inspection - NEURO Level of Consciousness: Awake, Alert, Appropriate - DERM Integumentary: Warm, Dry, No Rash Course - Re-evaluation Re-evalutation: No overt dental infection noted, appears to be sinus infection, patient describes it sloshing when she turns her head side to side. She reports pain in her face but denies a specific headache. She reports multiple sinus infections which are similar in the past. No fever. No tachycardia. No cellulitis or abscess noted. Placing on Augmentin, given dexamethasone for her lymphadenopathy, no noted Kem's angina. Discussed follow-up and return precautions with patient and significant other. They state understanding and agreement. - Vital Signs Vital signs: Temp Pulse Resp BP Pulse Ox 98.2 F 61 16 122/72 100 06/12/18 23:55 06/12/18 23:55 06/12/18 23:55 06/12/18 23:55 06/12/18 23:55 Discharge - Discharge Clinical Impression: Dental caries, Lymphadenopathy Sinusitis Qualifiers: Sinusitis location: maxillary Chronicity: acute Recurrence: non-recurrent Qualified Code(s): J01.00 - Acute maxillary sinusitis, unspecified Condition: Stable Disposition: HOME, SELF-CARE Additional Instructions: Your examination is most consistent with a sinus infection and swollen lymph nodes. There appears to be questionable dental involvement as well. Recommendation is to take the antibiotic as prescribed, I recommend probiotic source while you are taking this to avoid diarrhea. Follow-up with dentist and primary care for additional management. Return if you worsen including swelling of the neck, difficulty swallowing, fever of 100.4 greater, increased swelling of the face, or any other concerning symptoms. Prescriptions: Amox Tr/Potassium Clavulanate [Augmentin 875-125 Tablet] 1 tab PO BID 7 Days tablet Referrals: SYL PONCE MD [Primary Care Provider] - Follow up as needed
== END 2018-06-13 04:10 | disposition home or self-care (01) ==
LOC: ER 23:51
DX: J01.00 Acute maxillary sinusitis, unspecified (principal); K02.9 Dental caries, unspecified; R59.0 Localized enlarged lymph nodes
CPT/HCPCS: 99283; 96372; J1100

== ENCOUNTER 2018-11-14 14:36 | Emergency (ER) | payer SELFPAY ==
--- NOTE | 2018-11-14 16:03 | ER Document Report ---
ED Medical Screen (RME) - General Chief Complaint: Abdominal Pain Stated Complaint: LEFT SIDE PAIN,NAUSEA,VOMITING Time Seen by Provider: 11/14/18 15:59 Primary Care Provider: SYL PONCE MD [Primary Care Provider] - Follow up as needed Notes: 33-year-old female with history of tubal ligation/ablation and right nephrectomy in 2010 presents with acute left lower quadrant abdominal pain since Thursday night. Patient states that she has had preceding diarrhea for about 1 week and is extremely dehydrated. She denies any fever chills. She has had a recent illness about 2-1/2 weeks ago, it resolved and she then developed the diarrhea. Patient also complains of nausea, vomiting, and diarrhea for the last 7 days. Also, she states when she urinates she gets acute painful bladder spasm, but she denies any urinary symptoms. Patient does have history of kidney stones and states pain is unlike that. I have greeted and performed a rapid initial assessment of this patient. A comprehensive ED assessment and evaluation of the patient, analysis of test results and completion of medical decision making process will be conducted by an additional ED providers. TRAVEL OUTSIDE OF THE [place] IN LAST 30 DAYS: No - Related Data Allergies/Adverse Reactions: No Known Drug Allergies Allergy (Unknown, Verified 11/14/18 15:53) glutens Adverse Reaction (Intermediate, Uncoded 11/14/18 15:53) G.I. distress Past Medical History - Social History Chew tobacco use (# tins/day): No Frequency of alcohol use: Rare Drug Abuse: None - Past Medical History Cardiac Medical History: Reports: Hx Hypertension - portal htn Denies: Hx Coronary Artery Disease, Hx Heart Attack Pulmonary Medical History: Denies: Hx Asthma, Hx Bronchitis, Hx COPD, Hx Pneumonia Neurological Medical History: Denies: Hx Cerebrovascular Accident, Hx Seizures Renal/ Medical History: Reports: Hx Kidney Stones. Denies: Hx Peritoneal Dialysis Malignancy Medical History: Reports: Hx Breast Cancer, Hx Ovarian Cancer GI Medical History: Reports: Hx Diverticulitis, Hx Irritable Bowel Musculoskeltal Medical History: Denies Hx Arthritis, Reports Hx Musculoskeletal Deformity, Reports Hx Musculoskeletal Trauma Skin Medical History: Reports Hx Psoriasis Psychiatric Medical History: Reports: Hx Attention Deficit Hyperactivity Disorder, Hx Bipolar Disorder, Hx Post Traumatic Stress Disorder Traumatic Medical History: Reports: Hx Fractures - left arm and ribs Infectious Medical History: Reports: Hx C-Diff Past Surgical History: Reports: Hx Breast Surgery - lumpectomy right, Hx Section, Hx Cholecystectomy, Hx Gynecologic Surgery - rt oophorectomy, Hx Mastectomy - right, Hx Oral Surgery - jaw wired shut, wisdom teeth removed, Hx Tubal Ligation - Immunizations Hx Diphtheria, Pertussis, Tetanus Vaccination: Yes Physical Exam - Vital signs Vitals: Temp Pulse Resp BP Pulse Ox 98.7 F 69 18 111/70 99 11/14/18 14:50 11/14/18 14:50 11/14/18 14:50 11/14/18 14:50 11/14/18 14:50 - General General appearance: Appears well, Alert In distress: Mild - Abdominal Inspection: Normal Distension: No distension Bowel sounds: Normal Tenderness: Tender - Left lower quadrant to light palpation, referred pressure to left lower quadrant when palpating right side Course - Vital Signs Vital signs: Temp Pulse Resp BP Pulse Ox 98.7 F 69 18 111/70 99 11/14/18 14:50 11/14/18 14:50 11/14/18 14:50 11/14/18 14:50 11/14/18 14:50 Doctor's Discharge - Discharge Referrals: SYL PONCE MD [Primary Care Provider] - Follow up as needed
[2018-11-14] MEDS ORDERED: ONDANSETRON HCL INJ/PF 4 MG/2 ML SDV IV ONE (16:04)
[2018-11-14] MEDS ORDERED: FENTANYL CITRATE INJ/PF 100 MCG/2 ML AMPUL IV ONE (16:20)
[2018-11-14] MEDS: NORMAL SALINE 1000 ML 1,000 ML IV PRN ×2 (16:24→16:25)
[2018-11-14 16:46] LABS: ABSOLUTE BASOPHILS # (AUTO) 0.1 10^3/uL (0.0-0.2); ABSOLUTE EOSINOPHILS # (AUTO) 0.1 10^3/uL (0.0-0.6); ABSOLUTE LYMPHOCYTES (AUTO) 2.1 10^3/uL (0.5-4.7); ABSOLUTE MONOCYTES (AUTO) 0.6 10^3/uL (0.1-1.4); ABSOLUTE NEUT (AUTO) 9.2 10^3/uL (1.7-8.2); BASOPHILS % (AUTO) 0.4 % (0-2); HEMATOCRIT 40.5 % (36.0-47.0); HEMOGLOBIN 14.3 g/dL (12.0-15.5); LYMPHOCYTES % (AUTO) 17.5 % (13-45); MEAN CORPUSCULAR HEMOGLOBIN 31.5 pg (27.0-33.4); MEAN CORPUSCULAR HGB CONC 35.3 g/dL (32.0-36.0); MEAN CORPUSCULAR VOLUME 89 fl (80-97); MONOCYTES % (AUTO) 5.1 % (3-13); PLATELET COUNT 225 10^3/uL (150-450); RED BLOOD COUNT 4.53 10^6/uL (3.72-5.28); RED CELL DISTRIBUTION WIDTH 14.4 % (11.5-14.0); TOTAL CELLS COUNTED % (AUTO) 100 %; WHITE BLOOD COUNT 12.1 10^3/uL (4.0-10.5)
[2018-11-14 16:49] LABS: APPEARANCE,URINE SLIGHTLY-CLOUDY; BILIRUBIN,URINE NEGATIVE (NEGATIVE); COLOR,URINE YELLOW; GLUCOSE, URINE NEGATIVE (NEGATIVE); KETONES,URINE 20 mg/dL (NEGATIVE); LEUKOCYTE ESTERASE,URINE NEGATIVE (NEGATIVE); NITRITE,URINE NEGATIVE (NEGATIVE); PROTEIN,URINE NEGATIVE (NEGATIVE); URINE SPECIFIC GRAVITY 1.017; UROBILINOGEN,URINE NEGATIVE mg/dL (<2.0)
[2018-11-14 17:10] LABS: ALANINE AMINOTRANSFERASE 24 U/L (9-52); ALBUMIN 4.8 g/dL (3.5-5.0); ALKALINE PHOSPHATASE 51 U/L (38-126); ANION GAP 11 (5-19); ASPARTATE AMINO TRANSFERASE 18 U/L (14-36); BILIRUBIN,DIRECT 0.1 mg/dL (0.0-0.4); BILIRUBIN,TOTAL 1.2 mg/dL (0.2-1.3); BLOOD UREA NITROGEN 10 mg/dL (7-20); CALCIUM 11.1 mg/dL (8.4-10.2); CARBON DIOXIDE 26 mmol/L (22-30); CHLORIDE 104 mmol/L (98-107); GLUCOSE 78 mg/dL (75-110); LIPASE 36.6 U/L (23-300); POTASSIUM 4.3 mmol/L (3.6-5.0); SODIUM 140.8 mmol/L (137-145); TOTAL PROTEIN 7.6 g/dL (6.3-8.2)
--- NOTE | 2018-11-14 17:27 | RADIOLOGY REPORT (SQ) ---
EXAM DESCRIPTION: CT ABD/PELVIS WITH IV ONLY COMPLETED DATE/TIME: 11/14/2018 4:54 pm REASON FOR STUDY: fall, rib fx, RUQ and side pain COMPARISON: 01/12/2016 TECHNIQUE: CT scan of the abdomen and pelvis performed using helical scanning technique with dynamic intravenous contrast injection. No oral contrast. Images reviewed with lung, soft tissue, and bone windows. Reconstructed coronal and sagittal MPR images reviewed. Delayed images for evaluation of the urinary system also acquired. All images stored on PACS. All CT scanners at this facility use dose modulation, iterative reconstruction, and/or weight based d osing when appropriate to reduce radiation dose to as low as reasonably achievable (ALARA). [facility]: Dose Right [facility]: CareDose [facility]: Dose Right [facility]: Teradose 4D [facility]: Benjamin's Desk CONTRAST TYPE AND DOSE: contrast/concentration: Isovue 350.00 mg/ml; Total Contrast Delivered: 67.0 ml; Total Saline Delivered: 58.0 ml 67 mL IV of Omnipaque 350- low osmolar. RENAL FUNCTION: None required. The patient is less than 50 years old. RADIATION DOSE: CT Rad equipment meets quality standard of care and radiation dose reduction techniq ues were employed. CTDIvol: 5.0 - 5.6 mGy. DLP: 867 mGy-cm.. LIMITATIONS: None. FINDINGS: LOWER CHEST: No significant findings. No nodules or infiltrates. LIVER: Normal size. No masses. No dilated ducts. SPLEEN: Normal size. No focal lesions. PANCREAS: No masses. No significant calcifications. No adjacent inflammation or peripancreatic fluid collections. Pancreatic duct not dilated. GALLBLADDER: Surgically absent. ADRENAL GLANDS: No significant masses or asymmetry. RIGHT KIDNEY AND URETER: No solid masses. No significant calcifications. No hydronephrosis or hyd roureter. LEFT KIDNEY AND URETER: No solid masses. No significant calcifications. No hydronephrosis or hydr oureter. AORTA AND VESSELS: No aneurysm. No dissection. Renal arteries, SMA, celiac without stenosis. RETROPERITONEUM: No retroperitoneal adenopathy, hemorrhage or masses. BOWEL AND PERITONEAL CAVITY: No dilated loops of bowel. No masses or inflammatory changes. No free fluid or peritoneal masses. APPENDIX: Normal. PELVIS: No mass. Small amount of pelvic free fluid, likely physiologic in a menstruating female. Da te hyperattenuating focus within the uterus which appears to be at the junction of the endometrium, n onspecific and may represent a calcification. Normal bladder. ABDOMINAL WALL: No masses. No hernias. BONES: No acute fracture. No dislocation. OTHER: No other significant finding. IMPRESSION: NO SIGNIFICANT OR ACUTE FINDING IN THE ABDOMEN OR PELVIS ON CT SCAN WITH IV CONTRAST. TECHNICAL DOCUMENTATION: JOB ID: [id number] Quality ID # [id number]: Final reports with documentation of one or more dose reduction techniques (e.g., Au tomated exposure control, adjustment of the mA and/or kV according to patient size, use of iterative reconstruction technique) 2010 [employer]- All Rights Reserved Reading location - IP/workstation name: [email or web address]
[2018-11-14] MEDS ORDERED: MAG HYDROX/AL HYDROX/SIMETH SUSP 30 ML UDCUP PO ONE (17:49)
[2018-11-14] MEDS ORDERED: METOCLOPRAMIDE HCL ORAL SOLN 10 MG/10 ML UDCUP PO ONE (17:49)
[2018-11-14] MEDS ORDERED: HYDROMORPHONE HCL INJ/PF 2 MG/ML AMPULE IV ONE (17:49)
[2018-11-14] MEDS ORDERED: LIDOCAINE 2% VISCOUS SOLN 20 ML UDCUP PO ONE (17:49)
--- NOTE | 2018-11-14 18:00 | ER Document Report ---
ED General - General Chief Complaint: Abdominal Pain Stated Complaint: LEFT SIDE PAIN,NAUSEA,VOMITING Time Seen by Provider: 11/14/18 15:59 Primary Care Provider: SYL PONCE MD [Primary Care Provider] - Follow up as needed Mode of Arrival: Ambulatory Information source: Patient, [facility] Records Notes: 33-year-old female with portal hypertension, history of diverticulosis, IBS, previous history of kidney stones, C. difficile resents with complaint of left upper quadrant abdominal pain that started 4 days prior to arrival. Patient states the pain is throbbing, intense and not relieved with Pepto or [id number] pain medications. Patient also reports of 11 days of watery diarrhea that she states is nonbloody. Patient does has a history of C. diffi cile many years ago but states this is not similar. Patient has had associated nausea, vomiting TRAVEL OUTSIDE OF THE [place] IN LAST 30 DAYS: No - HPI Onset: Other Onset/Duration: Gradual, Persistent, Worse Quality of pain: Throbbing Severity: Moderate Pain Level: 2 Associated symptoms: Diarrhea, Nausea, Vomiting Exacerbated by: Movement Relieved by: Supine Similar symptoms previously: Yes Recently seen / treated by doctor: No - Related Data Allergies/Adverse Reactions: No Known Drug Allergies Allergy (Unknown, Verified 11/14/18 15:53) glutens Adverse Reaction (Intermediate, Uncoded 11/14/18 15:53) G.I. distress Past Medical History - General Information source: Patient, [facility] Records - Social History Smoking Status: Current Every Day Smoker Cigarette use (# per day): Yes - 10 Chew tobacco use (# tins/day): No Smoking Education Provided: Yes - Smoking cessation counseling was provided for 4 minutes at the bedside Frequency of alcohol use: Rare Drug Abuse: None Lives with: Family, Spouse/Significant other Family History: Arthritis, COPD, CVA, DM, Hyperlipidemia, Hypertension, Malignancy Patient has suicidal ideation: No Patient has homicidal ideation: No - Past Medical History Cardiac Medical History: Reports: Hx Hypertension - portal htn Denies: Hx Coronary Artery Disease, Hx Heart Attack Pulmonary Medical History: Denies: Hx Asthma, Hx Bronchitis, Hx COPD, Hx Pneumonia Neurological Medical History: Denies: Hx Cerebrovascular Accident, Hx Seizures Renal/ Medical History: Reports: Hx Kidney Stones. Denies: Hx Peritoneal Dialysis Malignancy Medical History: Reports: Hx Breast Cancer, Hx Ovarian Cancer GI Medical History: Reports: Hx Diverticulitis, Hx Irritable Bowel Musculoskeletal Medical History: Denies Hx Arthritis, Reports Hx Musculoskeletal Deformity, Reports Hx Musculoskeletal Trauma Skin Medical History: Reports Hx Psoriasis Psychiatric Medical History: Reports: Hx Attention Deficit Hyperactivity Disorder, Hx Bipolar Disorder, Hx Post Traumatic Stress Disorder Traumatic Medical History: Reports: Hx Fractures - left arm and ribs Infectious Medical History: Reports: Hx C-Diff Past Surgical History: Reports: Hx Breast Surgery - lumpectomy right, Hx Section, Hx Cholecystectomy, Hx Gynecologic Surgery - rt oophorectomy, Hx Mastectomy - right, Hx Oral Surgery - jaw wired shut, wisdom teeth removed, Hx Tubal Ligation - Immunizations Hx Diphtheria, Pertussis, Tetanus Vaccination: Yes Review of Systems - Review of Systems Constitutional: Malaise, Recent illness. denies: Fever EENT: denies: Blurred vision Cardiovascular: denies: Chest pain, Palpitations, Dizziness Respiratory: denies: Cough, Short of breath Gastrointestinal: Abdominal pain, Diarrhea, Nausea, Vomiting, Poor appetite. denies: Poor fluid intake, Blood in vomit, Black stools, Rectal bleeding Genitourinary: denies: Dysuria, Flank pain Female Genitourinary: denies: Vaginal discharge, Vaginal bleeding, Vaginal odor Musculoskeletal: denies: Back pain Skin: denies: Rash Hematologic/Lymphatic: No symptoms reported Neurological/Psychological: denies: Headaches -: Yes All other systems reviewed and negative Physical Exam - Vital signs Vitals: Temp Pulse Resp BP Pulse Ox 98.7 F 69 18 111/70 99 11/14/18 14:50 11/14/18 14:50 11/14/18 14:50 11/14/18 14:50 11/14/18 14:50 - Notes Notes: PHYSICAL EXAMINATION: GENERAL: Well-appearing, well-nourished and in no acute distress. HEAD: Atraumatic, normocephalic. EYES: Pupils equal round and reactive to light, extraocular movements intact, conjunctiva are normal. ENT: Nares patent, oropharynx clear without exudates. Moist mucous membranes. NECK: Normal range of motion, supple without lymphadenopathy LUNGS: Breath sounds clear to auscultation bilaterally and equal. No wheezes rales or rhonchi. HEART: Regular rate and rhythm without murmurs ABDOMEN: Soft, tenderness with palpation to the left upper quadrant. No right lower quadrant tenderness. Nondistended abdomen. No guarding, no rebound. No masses appreciated. Female : deferred Musculoskeletal: Normal range of motion, no pitting or edema. No cyanosis. NEUROLOGICAL: Cranial nerves grossly intact. Normal speech, normal gait. Normal sensory, motor exams PSYCH: Normal mood, normal affect. SKIN: Warm, Dry, normal turgor, no rashes or lesions noted. Course - Re-evaluation Re-evalutation: 11/15/18 10:23 Laboratory 11/14/18 11/14/18 11/14/18 16:10 16:10 16:10 WBC 12.1 H RBC 4.53 Hgb 14.3 Hct 40.5 MCV 89 MCH 31.5 MCHC 35.3 RDW 14.4 H Plt Count 225 Seg Neutrophils % 76.0 Lymphocytes % 17.5 Monocytes % 5.1 Eosinophils % 1.0 Basophils % 0.4 Absolute Neutrophils 9.2 H Absolute Lymphocytes 2.1 Absolute Monocytes 0.6 Absolute Eosinophils 0.1 Absolute Basophils 0.1 Sodium 140.8 Potassium 4.3 Chloride 104 Carbon Dioxide 26 Anion Gap 11 BUN 10 Creatinine 0.59 Est GFR ( Amer) > 60 Est GFR (Non-Af Amer) > 60 Glucose 78 Calcium 11.1 H Total Bilirubin 1.2 Direct Bilirubin 0.1 Neonat Total Bilirubin Not Reportable Neonat Direct Bilirubin Not Reportable Neonat Indirect Bili Not Reportable AST 18 ALT 24 Alkaline Phosphatase 51 Total Protein 7.6 Albumin 4.8 Lipase 36.6 Urine Color YELLOW Urine Appearance SLIGHTLY-CLOUDY Urine pH 6.0 Ur Specific [place] 1.017 Urine Protein NEGATIVE Urine Glucose (UA) NEGATIVE Urine Ketones 20 H Urine Blood SMALL H Urine Nitrite NEGATIVE Urine Bilirubin NEGATIVE Urine Urobilinogen NEGATIVE Ur Leukocyte Esterase NEGATIVE Urine WBC (Auto) 1 Urine RBC (Auto) 1 Squamous Epi Cells Auto 5 Urine Mucus (Auto) MANY Urine Ascorbic Acid NEGATIVE Urine HCG, Qual NEGATIVE Abdomen/Pelvis CT 11/14/18 16:04 IMPRESSION: NO SIGNIFICANT OR ACUTE FINDING IN THE ABDOMEN OR PELVIS ON CT SCAN WITH IV CONTRAST. Temp Pulse Resp BP Pulse Ox 98.3 F 50 L 18 104/61 97 11/14/18 18:34 11/14/18 18:34 11/14/18 14:50 11/14/18 18:34 11/14/18 18:34 33-year-old female presents with approximately 4 days of left upper quadrant abdominal pain and approximately 1 month of intermittent diarrhea. Patient describes the pain as throbbing, aching and worse with movement. Has a history of kidney stones but states this feels different. Denies any recent antibiotic use, travel. Reports a history of C. difficile but states that this diarrhea is not similar. Except for a mild leukocytosis and a small amount of blood in her urine her lab work is unremarkable. CT of the abdomen and pelvis with contrast showed no evidence of appendicitis, bowel obstruction, urolithiasis or any other acute findings of the abdomen. 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 Patient was provided copies of her lab work, imaging and advised to follow-up with her primary care physician in the next 24-48 hours. Patient was evaluated and treated as appropriate for the patient's presenting symptoms and complaint, with consideration of any critical or life threatening conditions that may be associated with their obtained history and exam as noted above. All results were discussed with patient and her significant other who is at the bedside. Patient provided the opportunity to ask questions, and express concerns. Patient was educated on treatments based on their presumed diagnosis as noted above. At this time we will discharge the patient with return precautions and follow-up recommendations. Verbal discharge instructions given a the bedside. Medication warnings reviewed. Patient is in agreement with this plan and has verbalized understanding of return precautions. After careful consideration I feel that that patient can be safely discharged from the emergency department, they were advised to followup with a primary care physician in 2-3 days. Dictation on this chart was performed using voice recognition software and may result in unintended grammatical, spelling, syntax or errors. - Vital Signs Vital signs: Temp Pulse Resp BP Pulse Ox 98.3 F 50 L 18 104/61 97 11/14/18 18:34 11/14/18 18:34 11/14/18 14:50 11/14/18 18:34 11/14/18 18:34 - Laboratory Result Diagrams: 11/14/18 16:10 11/14/18 16:10 Laboratory results interpreted by me: 11/14/18 11/14/18 11/14/18 16:10 16:10 16:10 WBC 12.1 H RDW 14.4 H Absolute Neutrophils 9.2 H Calcium 11.1 H Urine Ketones 20 H Urine Blood SMALL H - Diagnostic Test Radiology reviewed: Image reviewed, Reports reviewed Discharge - Discharge Clinical Impression: LUQ abdominal pain Diarrhea Qualifiers: Diarrhea type: unspecified type Qualified Code(s): R19.7 - Diarrhea, unspecified Hematuria Qualifiers: Hematuria type: unspecified type Qualified Code(s): R31.9 - Hematuria, unspecified Condition: Good Disposition: HOME, SELF-CARE Instructions: Abdominal Pain ([facility]), Diarrhea, Nonspecific ([facility]), Hematuria ([facility]) Prescriptions: Ketorolac Tromethamine [Toradol 10 mg Tablet] 10 mg PO Q6HP PRN #20 tablet PRN Reason: Ondansetron [Zofran Odt 4 mg Tablet] 1 - 2 tab PO Q4H PRN #15 tab.rapdis PRN Reason: For Nausea/Vomiting Referrals: SYL PONCE MD [Primary Care Provider] - Follow up as needed
[2018-11-14] MEDS ORDERED: KETOROLAC TROMETHAMINE INJ/PF 30 MG/1 ML SDV IV ONE (18:02)
[2018-11-14 18:40] VITALS: BP 104/61
== END 2018-11-14 18:40 | disposition home or self-care (01) ==
LOC: ER 14:36
DX: R10.12 Left upper quadrant pain (principal); R19.7 Diarrhea, unspecified; R31.9 Hematuria, unspecified; R63.0 Anorexia; D72.829 Elevated white blood cell count, unspecified; K76.6 Portal hypertension; Z87.19 Personal history of other diseases of the digestive system; Z87.442 Personal history of urinary calculi; F17.210 Nicotine dependence, cigarettes, uncomplicated; Z71.6 Tobacco abuse counseling; Z85.43 Personal history of malignant neoplasm of ovary; Z85.3 Personal history of malignant neoplasm of breast
CPT/HCPCS: 99406; 99284; 96361; 96374; 96375; 36415; 83690; 85025; 81025; 80053; 81001; 74177; J3010; J3490; J1885; J1170; J2405; J7030